=== PATIENT | female | born 1965 | race American Indian/Alaskan Native ===

== ENCOUNTER 2021-01-19 11:54 | Outpatient (CLI) | payer OTHER ==
--- NOTE | 2021-01-19 13:50 | XRay Report ---
CERVICAL SPINE 3 VIEWS INDICATION / CLINICAL INFORMATION: Neck and back pain. COMPARISON: Prior radiographs dated 01/30/15 are not available for comparison. FINDINGS: VERTEBRAE: No acute fracture. No significant malalignment. DISC SPACES / FACET JOINTS:Mild/moderate discogenic spondylosis at C3-4 and C5-6. Moderate multilevel facet spondylosis especially at C5-6 and C6-7 on the right. PARASPINAL SOFT TISSUES:No significant abnormality. ADDITIONAL FINDINGS: None. Signer Name: Laila Llamas MD Signed: 01/19/2021 1:45 PM Workstation Name: [email or web address]
--- NOTE | 2021-01-19 13:57 | XRay Report ---
RIGHT KNEE 2 VIEW(S) INDICATION / CLINICAL INFORMATION: RIGHT KNEE PAIN/BACK PAIN COMPARISON: None available. FINDINGS: BONES / JOINT(S): No acute fracture or subluxation. 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 No significant joint effusion or intra-articular b monet. SOFT TISSUES: No significant abnormality. ADDITIONAL FINDINGS: None. Signer Name: Laila Llamas MD Signed: 01/19/2021 1:53 PM Workstation Name: [email or web address] [email or web address]
--- NOTE | 2021-01-19 13:59 | XRay Report ---
LUMBAR SPINE 3 VIEWS INDICATION / CLINICAL INFORMATION: Back pain. COMPARISON: Radiographs dated 01/30/15 are not available for comparison. FINDINGS: VERTEBRAE: No acute fracture. No significant malalignment. DISC SPACES / FACET JOINTS:Mild disc space narrowing at L4-5 and L5-S1 with moderate facet spondylosi s at these levels. PARASPINAL SOFT TISSUES:No significant abnormality. ADDITIONAL FINDINGS: None. Signer Name: Laila Llamas MD Signed: 01/19/2021 1:55 PM Workstation Name: [email or web address]
== END 2021-01-19 11:55 | disposition home or self-care (01) ==
LOC: XRAY 11:54
PROVIDERS: ATTEND Internal Medicine
DX: M17.11 Unilateral primary osteoarthritis, right knee (principal); M47.816 Spondylosis without myelopathy or radiculopathy, lumbar region; M48.07 Spinal stenosis, lumbosacral region; M25.761 Osteophyte, right knee; M47.812 Spondylosis without myelopathy or radiculopathy, cervical region
CPT/HCPCS: 72040; 72100